=== PATIENT | female | born 1965 | race Caucasian/White ===

== ENCOUNTER 2022-08-02 12:09 | Emergency (ER) | payer OTHER, SELFPAY ==
[2022-08-02 12:19] VITALS: BP 177/72; PULSE 62; RESP 18; TEMP 36.7; O2SAT 98; BMI 25.2
--- NOTE | 2022-08-02 12:47 | W.ED.PSYCHS ---
HPI - Psych General: Chief Complaint: Psychiatric Symptoms Stated Complaint: Health Evaluation Time Seen by Provider: 08/02/22 12:37 PFSH ED PFSH: Medical History (Updated 06/22/22 @ 09:33 by Emelia Mills) Psychiatric care Course Vital Signs: Vital signs: Vital Signs Temperature 98.1 F 08/02/22 12:19 Pulse Rate 62 08/02/22 12:19 Respiratory Rate 18 08/02/22 12:19 Blood Pressure 177/72 08/02/22 12:19 Pulse Oximetry 98 08/02/22 12:19 Oxygen Delivery Me thod 08/02/22 12:19 Discharge Plan Discharge Condition: Stable Referrals: [facility] [Primary Care Provider] - Coding Level of Care Code ED Accounting Lecturer for Chikis Brumfield
--- NOTE | 2022-08-02 12:53 | ED_ITS ---
HPI - General Adult General: Chief complaint: Psychiatric Symptoms Stated complaint: Health Evaluation Time Seen by Provider: 08/02/22 12:37 History of Present Illness: HPI: [57]yo patient w/ hx of depression referred to the emergency room with worsening depression. Patient tells me that she wants her meds to be adjusted. Patient is currently on Celexa and Ativan for anxiety. On arrival, the patient is AAOx3 and cooperative with my evaluation. No focal complaints of chest pain, shortness of breath, palpitations, N/V, focal GI/ complaints. Currently denies SI/HI. No complaints of hallucinations. Onset: chronic Duration: ongoing Location: home Severity: severe Associated symptoms: Deny chest pain, dyspnea, nausea, rash, palpitations or vomiting Review of Systems Const: Denies: fever(s) or chills Eyes: Denies: change in vision ENMT: Denies: mouth pain Card: Denies: chest pain or palpitations Resp: Denies: dyspnea or non-productive cough GI: Denies: abdominal pain, nausea, vomiting or diarrhea : Denies: dysuria Musc: Denies: extremity pain Skin/Breast: Denies: rash or new lesions Neuro: Denies: weakness in extremities Psych: Reports: depression Won/Lymph: Denies: easy bruising PFSH ED PFSH: Medical History Depression Psychiatric care Social History Smoking and tobacco status: never smoked Alcohol intake: never Substance/Drug Use: never Physical Exam Const: COMMON NORMALS: alert HENMT: COMMON NORMALS: atraumatic HEAD & SCALP: atraumatic MOUTH: moist mucous membranes not abnormal Eye: COMMON NORMALS: EOMs intact bilaterally and conjunctivae normal CONJUNCTIVA: Yes conjunctivae normal Neck/C-Spine: COMMON NORMALS: full ROM and supple Resp: COMMON NORMALS: normal respiratory effort and clear to auscultation bilaterally AUSCULTATION: clear to auscultation bilaterally Cardio: COMMON NORMALS: regular rate RATE: regular rate GI: COMMON NORMALS: Soft to palpation and non-tender PALPATION: Yes Soft to palpation Extremity: COMMON NORMALS: full ROM Neuro: SENSORIUM/ORIENTATION: Yes alert MOTOR EXAM: No Abnormal motor strength present and Other motor observations present (no focal motor deficits) Psych: COMMON NORMALS: speech normal SPEECH: Yes normal speech MOOD & AFFECT: Yes depressed mood Course Vital Signs: Vital signs: Vital Signs Temperature 98.1 F 08/02/22 12:19 Pulse Rate 62 08/02/22 12:19 Respiratory Rate 18 08/02/22 12:19 Blood Pressure 177/72 08/02/22 12:19 Pulse Oximetry 98 08/02/22 12:19 Oxygen Delivery Me thod 08/02/22 12:19 MDM - General Adult Medical Decision Making [57]yo patient w/ hx of depression presenting for depression and request for medication adjustment. No SI or plan. HDS, exam within normal limit Thoughts are linear and organized, and the patient has no AH/VH, or HI. Clinically the patient displays no overt toxidrome; they are well appearing, with low suspicion for toxic ingestion given history and exam. Symptoms unlikely 2/2 anemia, hypothyroidism, infection, or ICH. [1:20pm] On reassessment, patient is hemodynamically stable with no acute medical complaints. Case discussed with psychiatric provider Dr. Dodson at [facility] psych inpatient who evaluated patient via telepsych and recommended discharge with close follow-up. Dajuan recommend starting patient on Abilify for adjunctive support for depression. Patient is instructed to come back to the emergency room should she have any episodes of depression or any new or concerning complaints. I have given patient follow up with our ed case manager to be seen by our outpatient by [facility] for depression and medication redjustment. Patient aware of a call from our ed case manager to schedule for appointment(s) and verbalizes understanding of the importance of following up. Rx abilify for depression Disposition: Discharge Discharge Plan Discharge Patient Disposition: Home Clinical Impression: Depression Condition: Stable Prescriptions: New Abilify 5 mg tablet 5 mg PO DAILY 20 Days Qty: 20 0RF Discharge Orders: Discharge ED (Routine); Ordered 08/02/22 Ordered By: Dayanara Berkowitz Referrals: Shanna Peña FNP [Primary Care Provider] - Discharge Diet: Advance as tolerated Discharge Activity: Increase activity as tolerated Patient Instructions: Depression (ED) Activity Restrictions/Additional Instructions: Please come back to the emergency room if you need help, have any urszula lucinations, or you have any depression or have thoughts about hurting yourself or other people. Our ed case manager will have you follow-up with [facility] in the next few days. You would be expected to have a phone call with our ed case manager who will put you on the schedule. You can expect a call from us in the next 2-3 days. If you don't hear from us, call us back in the emergency room at [phone]. Coding Level of Care Code ED Programs Assistant for Chikis Fwjenna Exam Comprehensive
[2022-08-02 13:49] VITALS: BP 170/70; PULSE 65; RESP 18; TEMP 36.7; O2SAT 98
--- NOTE | 2022-08-02 15:05 | DCPLANNER ---
Addendum entered by Cassy Mchugh 10/17/22 11:10: Patient had a follow up appointment scheduled with [facility] - patient did attend appointment. Addendum entered by Cassy Mchugh 08/03/22 14:33: Patient has a follow up appointment scheduled for Monday August 08, 2022 at 9:00 with Luc at [facility]. Clinic will call patient with appointment information. Original Note: manager room had message to schedule a follow up appointment for patient with [facility]. manager room sent patients information to Paris Gill at [facility], hospice home care coordinator. Patients information will be printed and reviewed. Clinic will call patient with appointment information.
== END 2022-08-02 13:55 | disposition home or self-care (01) ==
PROVIDERS: Emergency Provider Emergency Medicine; PCP Nurse Practitioner Family
DX: F32.A Depression, unspecified (principal)
CPT/HCPCS: 99283; Q3014

== ENCOUNTER → 2022-10-05 14:34 | Outpatient (BNVA) | payer OTHER, SELFPAY | PROVIDERS: PCP Nurse Practitioner Family; Visit Provider Nurse Practitioner Psychiatric/Mental Health | DX: Z79.899 Other long term (current) drug therapy (principal) | CPT/HCPCS: 80053; 82306; 84443 ==

== ENCOUNTER → 2023-01-24 14:06 | Outpatient (BNVA) | payer OTHER, SELFPAY | PROVIDERS: PCP Nurse Practitioner Family; Visit Provider Nurse Practitioner Psychiatric/Mental Health | DX: Z79.899 Other long term (current) drug therapy (principal) | CPT/HCPCS: 80061; 83036 ==

== ENCOUNTER → 2024-04-07 14:48 | Outpatient (BNVA) | payer OTHER, SELFPAY | PROVIDERS: PCP Nurse Practitioner Family; Visit Provider Nurse Practitioner Psychiatric/Mental Health | DX: Z79.899 Other long term (current) drug therapy (principal) | CPT/HCPCS: 80053; 80061; 83036 ==

== ENCOUNTER 2024-04-29 10:24 | Outpatient (CLI) | payer OTHER, SELFPAY ==
--- NOTE | 2024-04-29 10:40 | MM_ITS ---
WS: [id number] BILATERAL 3D TOMOSYNTHESIS DIGITAL SCREENING MAMMOGRAPHY WITH CAD CLINICAL INFORMATION: SCREENING HISTORY: Screening mammogram. No current complaints. COMPARISON: New baseline TECHNIQUE: Bilateral CC and MLO views. FINDINGS: The breasts are composed of heterogeneous fibroglandular density tissue, which can limit the detectio n of small underlying mass lesions. No suspicious mass, asymmetry, calcifications, or architectural d istortion. No evidence of malignancy. Lucent centered calcification LEFT breast. A few incidental pun ctate calcifications. Dense nodular breast tissue upper outer RIGHT breast. MM/[place] [id number] IMPRESSION: BI-RADS: 2-Benign FOLLOW UP: 1 Year Follow-up Recommend return to annual screening mammography.
== END 2024-04-29 10:25 | disposition home or self-care (01) ==
LOC: MOBLMAM 10:37
PROVIDERS: PCP Nurse Practitioner; Visit Provider Nurse Practitioner
DX: Z12.31 Encounter for screening mammogram for malignant neoplasm of breast (principal); R92.323 Mammographic fibroglandular density, bilateral breasts; R92.333 Mammographic heterogeneous density, bilateral breasts; R92.1 Mammographic calcification found on diagnostic imaging of breast; R92.30 Dense breasts, unspecified
CPT/HCPCS: 77063; 77067

== ENCOUNTER 2024-06-25 14:35 | Outpatient (CLI) | payer OTHER, SELFPAY | END 2024-06-25 14:36 | disposition home or self-care (01) | LOC: SPT 14:36 | PROVIDERS: PCP Nurse Practitioner; Visit Provider Podiatrist Foot & Ankle Surgery | DX: Z46.89 Encounter for fitting and adjustment of other specified devices (principal); S86.019D Strain of unspecified Achilles tendon, subsequent encounter; X58.XXXD Exposure to other specified factors, subsequent encounter | CPT/HCPCS: L4361 ==

== ENCOUNTER → 2024-07-09 13:00 | Outpatient (BNVA) | payer OTHER, SELFPAY | PROVIDERS: PCP Nurse Practitioner; Visit Provider Podiatrist Foot & Ankle Surgery | DX: S86.012A Strain of left Achilles tendon, initial encounter; X58.XXXA Exposure to other specified factors, initial encounter; R29.6 Repeated falls | CPT/HCPCS: 99213 ==

== ENCOUNTER → 2024-07-29 14:55 | Outpatient (BNVA) | payer OTHER, SELFPAY | PROVIDERS: PCP Nurse Practitioner; Visit Provider Podiatrist Foot & Ankle Surgery | DX: S86.012A Strain of left Achilles tendon, initial encounter; X58.XXXA Exposure to other specified factors, initial encounter | CPT/HCPCS: 99213 ==

== ENCOUNTER → 2024-09-03 13:47 | Outpatient (BNVA) | payer OTHER, SELFPAY | PROVIDERS: PCP Nurse Practitioner; Visit Provider Podiatrist Foot & Ankle Surgery | DX: S86.012A Strain of left Achilles tendon, initial encounter; X58.XXXA Exposure to other specified factors, initial encounter | CPT/HCPCS: 99213 ==

== ENCOUNTER → 2024-10-14 13:36 | Outpatient (BNVA) | payer OTHER, SELFPAY | PROVIDERS: PCP Nurse Practitioner; Visit Provider Nurse Practitioner | DX: M25.561 Pain in right knee (principal); M25.562 Pain in left knee; M17.0 Bilateral primary osteoarthritis of knee | CPT/HCPCS: 20610; 73560; 73565; 99204; J1100; J2795; J3301 ==

== ENCOUNTER 2024-10-14 15:34 | Outpatient (CLI) | payer OTHER, SELFPAY | END 2024-10-14 15:35 | disposition home or self-care (01) | LOC: SPT 15:34 | PROVIDERS: PCP Nurse Practitioner; Visit Provider Nurse Practitioner | DX: Z46.89 Encounter for fitting and adjustment of other specified devices (principal); M25.561 Pain in right knee; M25.562 Pain in left knee | CPT/HCPCS: 97760; L1812 ==

== ENCOUNTER → 2024-10-15 13:50 | Outpatient (BNVA) | payer OTHER, SELFPAY | PROVIDERS: PCP Nurse Practitioner; Visit Provider Podiatrist Foot & Ankle Surgery | DX: E11.8 Type 2 diabetes mellitus with unspecified complications (principal); S86.012A Strain of left Achilles tendon, initial encounter; X58.XXXA Exposure to other specified factors, initial encounter | CPT/HCPCS: 99213 ==

== ENCOUNTER → 2025-01-13 13:59 | Outpatient (BNVA) | payer OTHER, SELFPAY | PROVIDERS: PCP Nurse Practitioner; Visit Provider Nurse Practitioner | DX: M17.0 Bilateral primary osteoarthritis of knee (principal); S89.91XA Unspecified injury of right lower leg, initial encounter; X58.XXXA Exposure to other specified factors, initial encounter | CPT/HCPCS: 20610; 73560; 73565; 99214; J1100; J2795; J3301; J9999 ==

== ENCOUNTER 2025-02-03 10:19 | Outpatient (CLI) | payer OTHER, SELFPAY ==
--- NOTE | 2025-02-03 10:45 | CT_ITS ---
WS: [id number] CT LEFT knee, noncontrast HISTORY: M17.0 - Bilateral primary osteoarthritis of knee TECHNIQUE: Protocol for [facility] total knee replacement has been obtained. This includes axial imaging through the LEFT hip, LEFT knee and LEFT ankle. DLP: 909.58 mGy.cm COMPARISON: Radiograph 01/13/2025 Hips: No fracture or destructive bone process. Mild arterial calcifications. LEFT knee: Mild tricompartment osteoarthritis. Slightly greater narrowing at the medial compartment. No destructive bone lesions. Small suprapatellar joint effusion. Popliteal artery calcifications. LEFT ankle: Negative. CT/CT knee LT [facility] [id number] IMPRESSION: CT imaging provided for [facility] robotic total knee replacement.
== END 2025-02-03 10:20 | disposition home or self-care (01) ==
PROVIDERS: PCP Nurse Practitioner; Visit Provider Nurse Practitioner
DX: M17.0 Bilateral primary osteoarthritis of knee (principal); I70.90 Unspecified atherosclerosis; M25.462 Effusion, left knee; I70.8 Atherosclerosis of other arteries
CPT/HCPCS: 73700

== ENCOUNTER 2025-02-18 13:27 | Outpatient (CLI) | payer OTHER, SELFPAY ==
--- NOTE | 2025-02-18 13:45 | CT_ITS ---
WS: [id number] CT LEFT KNEE, NONCONTRAST [facility] TECHNIQUE: Noncontrast CT of the LEFT knee to include the LEFT hip and ankle. CLINICAL INFORMATION: PER [facility] PROTOCOL DLP: 959.[address] scans at [facility] use at least one of these dose optimization techniques: automated exposure control; mA and/or kV adjustment per patient size (includes targeted exams where dose is matched to clinical indication); or iterative reconstruction. FINDINGS: Moderate tricompartment arthritis LEFT knee. Moderate to advanced joint space narrowing medial joint compartment with near [id number] articulation. Hypertrophic changes along the joint line. Hypertrophic patella. Small suprapatellar effusion. Vascular calcification. Subchondral cystic changes. Normal sigmoid colon. CT/CT knee LT [facility] [id number] IMPRESSION: Images obtained for preoperative purposes.
== END 2025-02-18 13:28 | disposition home or self-care (01) ==
PROVIDERS: PCP Nurse Practitioner; Visit Provider Nurse Practitioner
DX: M17.0 Bilateral primary osteoarthritis of knee (principal); R93.6 Abnormal findings on diagnostic imaging of limbs; M89.38 Hypertrophy of bone, other site; M25.462 Effusion, left knee; I70.90 Unspecified atherosclerosis
CPT/HCPCS: 73700

== ENCOUNTER 2025-02-26 12:09 | Outpatient (CLI) | payer OTHER, SELFPAY ==
[2025-02-26 12:34] LABS: Basophils % 0.3 %; Eosinophils % 0.2 %; Hematocrit 37.9 % (36-47); Lymphocytes # 1.9 10^3/uL (0.8-4.8); Lymphocytes % 16.6 %; Mean Corpuscular HGB Conc 33.5 g/dL (30-55); Mean Corpuscular Hemoglobin 35.9 pg (27-33); Mean Corpuscular Volume 107.1 fl (85-98); Mean Platelet Volume 10.3 fL (7.4-10.4); Monocytes % 8.4 %; Neutrophils # 8.45 10^3/uL (1.8-7.7); Neutrophils % 74.1 %; Nucleated Red Blood Cells % 0 %; Platelet Count 166 10^3/cmm (157-399); Red Blood Count 3.54 10^6/uL (3.85-5.65); Red Cell Distribution Width 13.9 % (12.1-15.1)
[2025-02-26 12:34] LABS: Bilirubin Urine Negative (Negative); Blood Urine 2+ (Negative); Glucose Urine UA Negative (Normal); Ketones Urine Negative (Negative); Leukocyte Esterase Urine Negative (Negative); Nitrate Urine Negative (Negative); Protein Urine Negative (Negative); Specific Gravity, Urine 1.005 (1.005-1.030); Urine Appearance Clear (CLEAR); Urine Color Yellow (Yellow); Urobilinogen Urine 0.2 mg/dL (Negative); pH Urine 6.5 (5-7)
[2025-02-26 12:39] LABS: Add Urine Microscopic? YES; Bacteria Urine None Seen /hpf; Hyaline Casts Urine 0-4 /lpf; RBC Urine 0-2 /hpf (0-2); WBC Urine 0-5 /hpf (0-5)
[2025-02-26 12:54] LABS: Alanine Aminotransferase 12 U/L (0-33); Alkaline Phosphatase 82 U/L (35-105); Anion Gap 14.1 (5-19); Aspartate Amino Transferase 11 U/L (0-32); Blood Urea Nitrogen 10 mg/dL (6-20); Carbon Dioxide 29 mmol/L (22-29); Chloride 100 mmol/L (98-107); Globulin 2.7 g/dL (1.3-4.6); Glomerular Filtration Rate 56.7 mL/min (90-130); Glucose 128 mg/dL (65-115); Osmolality Calculated 291 mOsm/kg (285-295); Potassium 3.1 mmol/L (3.5-5.1); Sodium 140 mmol/L (136-145); Total Bilirubin 0.2 mg/dL (0.15-1.2); Total Protein 6.7 g/dL (6.6-8.7)
[2025-02-26 13:15] LABS: Squamous Epithelial Cell Urine 0-5 /hpf (0-5); UA Slide Review UA Slide Review Perf
[2025-02-26 13:16] LABS: Add Urine Culture? No
== END 2025-02-26 12:10 | disposition home or self-care (01) ==
PROVIDERS: PCP Nurse Practitioner; Visit Provider Nurse Practitioner
DX: M17.0 Bilateral primary osteoarthritis of knee (principal)
CPT/HCPCS: 80053; 81001; 85025

== ENCOUNTER → 2025-03-08 15:23 | Outpatient (BNVA) | payer OTHER, SELFPAY | PROVIDERS: PCP Nurse Practitioner; Visit Provider Nurse Practitioner | DX: M17.12 Unilateral primary osteoarthritis, left knee (principal) | CPT/HCPCS: 99214 ==

== ENCOUNTER 2025-03-11 13:09 | Observation (INO) | payer OTHER, SELFPAY ==
[2025-03-11] VITALS (18 sets, daily range): BP systolic 133–184; BP diastolic 59–94; PULSE 67–84; RESP 14–25; TEMP 36.1–37.1; O2SAT 90–99; BMI 31.8
[2025-03-11] MEDS: acetaminophen 1,000 MG/100 ML PIGGYBACK 400 MG IV ×3 (06:21→20:25)
[2025-03-11] MEDS: gabapentin 300 mg Capsule PO (06:22)
[2025-03-11] MEDS: CELEcoxib 200 mg Capsule 400 MG PO (06:22)
--- NOTE | 2025-03-11 07:09 | W.PM.OPSUD ---
Surgery/Procedure H&P Update DATE OF PROCEDURE: March 11, 2025 DATE H&P PERFORMED: 03/01/25 H&P UPDATE INFORMATION: I have reviewed H&P completed within last 30 days, I have examined patient prior to procedure, No changes to prior documentation and H&P is in [facility] EMR on date indicated CHANGES TO PREVIOUS DOCUMENTATION: Patient was seen and evaluated preoperatively by her primary care, Sara Crawford, nurse practitioner for orthopedics, as well as Dr. Weeks. She has been tested for autoimmune disease, but this is still in the workup process. There are no definitive findings. ABIs were negative preoperatively. After discussion with the patient, we elected proceed with surgical intervention. There are what appeared to be some petechia or purpura over the anterior medial aspect of the knee. There is no sign of infection or other issue of concern. PLANNED PROCEDURE: Operation Date: 03/11/25 07:00 Proposed Procedures p LEFT Prashanth Robot Total Knee Arthroplasty(Left) - Jacquelyn Mukherjee MD Related Problem List Diagnoses (1) Primary osteoarthritis of left knee: (2) Autoimmune disorder:
[2025-03-11] MEDS: ceFAZolin 2,000 mg SDV 2000 MG IVP ×2 (07:10→17:34)
--- NOTE | 2025-03-11 07:12 | ANES.PREANE2 ---
Pre-Anesthetic Assessment Height/Weight: Height 1.52 m Weight 73.936 kg Temp Pulse Resp BP Pulse Ox O2 Del Method 97.0 F L 68 18 184/94 97 Room Air 03/11/25 05:59 03/11/25 05:59 03/11/25 05:59 03/11/25 05:59 03/11/25 05:59 03/11/25 05:59 Operation Date: 03/11/25 07:00 Proposed Procedures p LEFT Prashanth Robot Total Knee Arthroplasty(Left) - Jacquelyn Mukherjee MD Familial anesthetic complications: none Was Beta Carol taken within 24 hours: N/A Was Clonidine taken within 24 hours: N/A Last intake: Intake Last Liquid Date 03/10/25 Last Liquid Time 22:00 Last Solid Date 03/10/25 Last Solid Time 19:00 Social Tobacco and No alcohol Exam alert, oriented x 3, clear to auscultation bilaterally and regular rate & rhythm Airway Mallampati: Class I Dentition: false CV/HEM Hypertension [facility] 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 States it only affects her by red jay/lesions showing up on her skin. Anesthetic Plan ASA status: 2 Anesthesia: General Risk of > 500 ml blood loss (7ml/kg in children): No Medications/Allergies Home Medications ?Medication ?Instructions ?Recorded ?Confirmed ?Last Taken ?Type lisinopril 20 mg tablet 20 mg PO DAILY 08/08/22 03/10/25 03/10/25 22:30 History bilateral hinged knee braces #1 ea 10/14/24 03/08/25 Unknown Rx cholecalciferol (vitamin D3) 50 50 mcg PO DAILY 11/24/24 03/10/25 03/10/25 22:30 History mcg (2,000 unit) tablet clonidine HCl 0.1 mg tablet 0.1 mg PO BID PRN hypertensive 12/22/24 03/10/25 03/10/25 22:30 Rx emergency #60 tabs venlafaxine 100 mg tablet 300 mg (3 x 100 mg) PO .morning 01/14/25 03/10/25 03/10/25 22:30 Rx #90 tabs clonazepam 1 mg tablet (Klonopin) 1 mg PO BID anxiety/panic attacks 03/10/25 03/10/25 03/10/25 22:30 History Allergies Allergy/AdvReac Type Severity Reaction Status Date / Time No Known Allergies Allergy Verified 03/11/25 05:55 [facility] Anesthesia Medical History Chronic post-traumatic stress disorder Major depressive disorder, recurrent severe without psychotic features Generalized anxiety disorder with panic attacks Nicotine dependence, cigarettes, uncomplicated Complicated bereavement Sudden loss of son 09/28/2019 Father in law 11/20/24 Psychiatric care Social History Smoking and tobacco/nicotine status: current every day tobacco/nicotine user cigarettes Packs smoked per day: 1 Years cigarettes smoked: 20 Quit status (tobacco/nicotine): considering quitting Second hand smoke exposure: Yes Alcohol intake: current Alcohol intake frequency: holidays/special occasions only Alcohol type: beer Substance/Drug Use: current Substance/Drug use frequency: few times a week
[2025-03-11] MEDS: tranexamic acid 1,000 mg/10mL SDV 1000 MG IV (07:45)
[2025-03-11] MEDS: ceFAZolin 1,000 mg SDV 2000 MG IRRIGATION (08:28)
[2025-03-11] MEDS: VANCOMYCIN ADD-Vantage 1,000 MG VIAL 1000 MG XX (08:31)
[2025-03-11] MEDS: BUPivacaine liposome 13.3 mg/mL SDV 20 mL 266 MG INJECTION (08:35)
[2025-03-11] MEDS: BUPivacaine 0.5% INJ 10 mL 20 ML INJECTION (08:35)
--- NOTE | 2025-03-11 10:06 | XR_ITS ---
WS: [id number] Exam: XR knee LT 1-2V [id number] Date/Time of Exam: 03/11/2025 10:16 AM Reason For Exam: Status post total knee arthroplasty Comparison 01/13/2025. Total knee prosthesis is in place in excellent position. Postoperative changes in the adjacent soft tissues. XR/XR knee LT 1-2V [id number] IMPRESSION: 1. LEFT total knee replacement in excellent position.
--- NOTE | 2025-03-11 10:11 | P.OP_ITS ---
Operative Report Date of procedure: March 11, 2025 Pre-op diagnosis: Primary osteoarthritis left knee Post-op diagnosis: Primary osteoarthritis left knee Post-op findings: Significant degenerative osteoarthritis with large osteophytes and complete denudement of cartilage. Varus deformity. Procedure done: Left total knee arthroplasty with Prashanth guidance Implants: The [employer] total knee system with a size 3 triathlon beaded cruciate retaining femur left, a triathlon titanium tibial component size 3 beaded, a triathlon X3 tibial bearing CS insert size 3 X 10 mm and a beaded triathlon titanium asymmetric patella size 32 x 10 mm Specimens removed/disposition: Synovium to pathology, bone, disposed of Pathology: Synovium as above the pathology Surgeon: Jacquelyn Mukherjee MD Baby Formula Mixer: Sara Crawford, nurse practitioner who services were required for retraction, exposure, closure, and completion of the surgical procedure Anesthesia: General (Intubated, ASA 2) Estimated blood loss (mL): 100 Tourniquet time (min): 0 (Not utilized) IV fluids (mL): 1,500 Urine output (mL): 200 Complications: None Findings: Severe degenerative osteoarthritis with varus deformity and significant osteophytes and denudement of cartilage Condition: stable Disposition: PACU (Then admit to hospital under observation status for postoperative rehabilitation and pain management) Brief History: This 60-year-old woman presented to the office complaining of bilateral knee pain with a diagnosis of osteoarthritis. The left knee continued to worsen, and injection therapy did not provide her with significant relief. The right knee had significant relief with the injection therapy and she wished to proceed with injection therapy to the right knee only. Additionally, the patient wished to proceed with left total knee arthroplasty. Extended discussion was undertaken regarding the risks and complications. She is surgery was scheduled. Questions were answered, and consent was signed in the clinic. Patient was seen the morning of surgery and given further opportunity for questions and discussion. Procedure: The patient was brought to the operating theater, and after undergoing adequate general anesthesia intubated, ASA 2, the left lower extremity was prepped with DuraPrep and draped in usual fashion following placement of a tourniquet high on the leg. The leg was then draped free. Tourniquet was placed on the leg but was not elevated throughout the surgical procedure. Following exposure of the site of surgery, a surgical pause was performed. At the time of the surgical pause, we confirmed the site and side of surgery. Additionally, we confirmed the appropriate and timely administration of preoperative antibiotics, Ancef 2 g. Tranexamic acid 1 g was given preoperatively and will be given again on the floor for 1 dose postoperatively. The availability of equipment was confirmed, and the patient's identity was verbalized as well. Following the surgical pause, an incision was made centering over the patella continuing proximally and distally as necessary to allow access to the knee joint. Dissection continued through skin and soft tissues using a scalpel. Hemostasis was obtained using electrocautery. The skin incision was followed by a median parapatellar arthrotomy. Appropriate arrays and markers were placed in appropriate position for use of the [facility]. Preoperative planning had been accomplished and was discussed in detail with the [facility] telemarketing sales representative. Intraoperative mapping of the femur and tibia was accomplished after the arrays were placed. Once we had accomplished the [facility] mapping, we began the appropriate resections for placement of the prosthesis. The plan was for a cruciate retaining right total knee arthroplasty. Once appropriate mapping had been accomplished retraction was established using manual retraction by the [facility] leg positioner and retractors. The knee was evaluated. There was eburnation particularly of the medial femoral condyle.? There were large osteophytes circumferentially about the trochlear groove as well as the patella and medial tibial plateau.? After balancing the knee within the Prashanth program, the appropriate bone resection was accomplished. Initial resection was accomplished on the tibia followed by appropriate resections on the femur. We had performed a medial release at the beginning of the procedure to allow for placement of the array. Proximal tibia was evaluated and it was felt that appropriate size for the tibia was a size 3, and appropriate femoral size was a size 3. A trial reduction was accomplished after osteophytes had been removed, the medial and lateral meniscus were excised, and bone cuts had been accomplished as above. We had removed the anterior cruciate ligament at the beginning of the case and preserved the posterior cruciate ligament. Trial reduction was accomplished with a size 3 femoral cruciate retaining component and a size 3 tibia with a CS tibial bearing insert which was 10 mm in thickness. Initial trial reduction demonstrated that the knee had excellent stability, full extension, and full flexion. Slight posterior release was accomplished, and small osteophytes were removed from posteriorly as well. This was consistent with the preoperative balancing and planning. The trial components were removed after the femur had been drilled. Prior to removal of the tibial tray which had been pinned in position with appropriate rotation as determined by the Prashanth plan, we broached the tibia. Subsequently, the 4 drill holes were made for the prosthetic component. All trial components had been removed, and the wound was irrigated. Plans were made for insertion of the prosthetic components. Prior to this, the patella was prepared utilizing the patellar jig. We resected the articular surface of the patella utilizing the appropriate resection, and patellar height was restored with the patellar component. Once again, the wound was irrigated. The Tritanium tibia was impacted into position.? The beaded femur was then impacted into position in a cementless fashion. The CS tibial insert was placed prior to placement of the femoral component. The patella was pressed into position with a patellar clamp. The knee was then copiously irrigated with betadine and saline and suctioned dry. Attention was then directed to closure. Closure was accomplished with 0 Vicryl in the fascial tissues followed by a running #1 strata fix 1 from proximal to distal and 1 from distal to proximal.? This was followed by Surgiflo and vancomycin powder. Subcutaneous tissues were closed with 2-0 Monocryl strata fix, and the skin was closed in a running subcuticular fashion with 3-0 Monocryl strata fix.? A sterile dressing was then placed consisting of Dermabond Prineo, OpSite, sterile soft roll including over the foot, and an Taye wrap. The patient was returned the Recovery Room in a satisfactory condition. X-rays were obtained and reviewed there.? The patient will be discharged to the floor for postoperative rehabilitation and pain management. Related Problem List Diagnoses (1) Primary osteoarthritis of left knee:
--- NOTE | 2025-03-11 10:13 | PC.NURSE ---
YEAST NOTED ON BILAT INNER THIGHS. Merlyn VIVAS KINESIOLOGY PROFESSOR AWARE.
[2025-03-11] MEDS: fentaNYL 50 mcg/mL INJ 2mL IVP (10:52)
--- NOTE | 2025-03-11 10:55 | PC.NURSE ---
PATIENT FRIAS COPD DX FOR 10 YEARS, DOES NOT WEAR OXYGEN AT HOME. EVERY DAY SMOKER. OXYGEN SAT DROPPING TO M87 BACK UP TO 91. PATIENT PLACED ON 2L OXYGEN FOR SUPPLEMENT POST OPERATIVELY. ANESTHESIOLOGY CONSULTED. OKAYED TO GIVE PRN POST OP PAIN MEDICATION.
[2025-03-11] MEDS: oxyCODONE 5 mg IR Tab/Cap PO (12:00)
--- NOTE | 2025-03-11 13:34 | ANE.PACU2 ---
Inpatient post-anesthesia follow up: Airway intact: Yes Vital signs: Temperature 97.6 F Pulse Rate 72 Respiratory Rate 17 Blood Pressure 134/59 Pulse Oximetry 95 Oxygen Delivery Me thod Nasal Cannula Oxygen Flow Rate 2 Fraction of Inspir ed Oxygen 2 Hydration adequate: Yes Nausea and vomiting: No Pain level: 1 Mental status: Baseline
[2025-03-11] MEDS: CELEcoxib 200 mg Capsule PO (14:00)
[2025-03-11] MEDS: tranexamic acid 1,000 MG/100 ML PREMIX 600 MG IV (16:10)
[2025-03-11] MEDS: calcium carbonate 500 mg Chew Tablet 1000 MG PO (17:32)
[2025-03-11] MEDS: sennosides-docusate Tablet 2 TAB PO (17:32)
[2025-03-11] MEDS: iron polysaccharide complex 150 mg Capsule PO (17:32)
[2025-03-11] MEDS: chlorhexidine gluconate 0.12% Btl 473 mL 30 ML MUCOUS MEM ×2 (17:34→20:25)
[2025-03-11] MEDS: mupirocin oint 22 gm 1 APPLIC NASAL (17:36)
[2025-03-12] VITALS (7 sets, daily range): BP systolic 151–182; BP diastolic 69–85; PULSE 73–77; RESP 16–19; TEMP 36.4–36.9; O2SAT 92–96
[2025-03-12] MEDS: oxyCODONE 5 mg IR Tab/Cap PO ×2 (00:01→08:07)
[2025-03-12] MEDS: CELEcoxib 200 mg Capsule PO (00:01)
[2025-03-12] MEDS: cloNIDine 0.1 mg Tablet PO (04:12)
[2025-03-12] MEDS: acetaminophen 1,000 MG/100 ML PIGGYBACK 400 MG IV (04:14)
[2025-03-12] MEDS: CLONazepam 1 mg Tablet PO (04:23)
[2025-03-12 05:48] LABS: Basophils % 0.1 %; Hematocrit 30.5 % (36-47); Lymphocytes # 0.9 10^3/uL (0.8-4.8); Lymphocytes % 7.2 %; Mean Corpuscular HGB Conc 32.5 g/dL (30-55); Mean Corpuscular Hemoglobin 35.4 pg (27-33); Mean Corpuscular Volume 108.9 fl (85-98); Mean Platelet Volume 10.8 fL (7.4-10.4); Monocytes # 1.7 10^3/uL (0.2-0.9); Monocytes % 13.2 %; Neutrophils # 9.98 10^3/uL (1.8-7.7); Nucleated Red Blood Cells % 0 %; Platelet Count 127 10^3/cmm (157-399); Red Cell Distribution Width 13.1 % (12.1-15.1); White Blood Count 12.63 10^3/uL (3.29-11.43)
[2025-03-12 05:58] LABS: Anion Gap 10.2 (5-19); Blood Urea Nitrogen 17 mg/dL (6-20); Calcium 8.3 mg/dL (8.5-10.5); Carbon Dioxide 30 mmol/L (22-29); Chloride 103 mmol/L (98-107); Creatinine Clr Calc Pharmacy 47.6783; Glucose 117 mg/dL (65-115); Osmolality Calculated 293 mOsm/kg (285-295); Potassium 3.2 mmol/L (3.5-5.1); Sodium 140 mmol/L (136-145)
[2025-03-12] MEDS: venlafaxine 75 mg Tablet 300 MG PO (06:11)
[2025-03-12] MEDS: calcium carbonate 500 mg Chew Tablet 1000 MG PO (08:08)
[2025-03-12] MEDS: multivitamin therapeutic Tablet 1 TAB PO (08:08)
[2025-03-12] MEDS: iron polysaccharide complex 150 mg Capsule PO (08:08)
[2025-03-12] MEDS: cholecalciferol (vitamin D3) 1,000 unit Tablet 1000 UNIT PO (08:08)
[2025-03-12] MEDS: lisinopril 20 mg Tablet PO (08:08)
[2025-03-12] MEDS: aspirin 325 mg EC Tablet PO (08:08)
[2025-03-12] MEDS: sennosides-docusate Tablet 2 TAB PO (08:08)
[2025-03-12] MEDS: ceFAZolin 2,000 mg SDV 2000 MG IVP ×2 (09:55)
[2025-03-12] MEDS: chlorhexidine gluconate 0.12% Btl 473 mL 30 ML MUCOUS MEM (10:03)
[2025-03-12] MEDS: mupirocin oint 22 gm 1 APPLIC NASAL (10:04)
--- NOTE | 2025-03-12 12:47 | P.DS_ITS ---
Discharge Providers Date of Admission: 03/11/25 13:09 Date of Discharge: March 12, 2025 Attending Provider at Admission: Jacquelyn Mukherjee MD Attending Provider at Discharge: Jacquelyn Mukherjee MD Primary Care Provider: JANESSA Steele Diagnoses at Discharge Discharge Diagnosis (1) Primary osteoarthritis of left knee: Status: Chronic (2) Status post total left knee replacement not using cement: Status: Acute Permanent problem details: Date of procedure: March 11, 2025 Diagnosis: Primary osteoarthritis left knee Procedure done: Left total knee arthroplasty with Prashanth guidance Implants: The [place] total knee system with a size 3 triathlon beaded cruciate retaining femur left, a triathlon titanium tibial component size 3 beaded, a triathlon X3 tibial bearing CS insert size 3 X 10 mm and a beaded triathlon titanium asymmetric patella size 32 x 10 mm Reason for Visit Reason for Visit: M17.12 Brief History: This 60-year-old woman presented to the office complaining of bilateral knee pain with a diagnosis of osteoarthritis. The left knee continued to worsen, and injection therapy did not provide her with significant relief. The right knee had significant relief with the injection therapy and she wished to proceed with injection therapy to the right knee only. Additionally, the patient wished to proceed with left total knee arthroplasty. Extended discussion was undertaken regarding the risks and complications. She is surgery was scheduled. Questions were answered, and consent was signed in the clinic. Patient was seen the morning of surgery and given further opportunity for questions and discussion. Hospital Course Hospital Course This 60-year-old woman was admitted under observation status following left total knee arthroplasty. Her postoperative stay was uneventful, and in fact, the patient wanted to be able to be discharged home on the day of surgery. She was encouraged to remain in the hospital for pain management and observation as well. Patient worked with physical therapy, and she was felt to be safe to be discharged to home. Plans are made for this discharge. Physical Exam Const: COMMON NORMALS: no acute distress, average body habitus, patient oriented x3 and alert GENERAL APPEARANCE: cooperative and comfortable ORIENTATION/CONSCIOUSNESS: Yes awake HENMT: COMMON NORMALS: normocephalic and atraumatic HEAD & SCALP: normocephalic and atraumatic Eye: GENERAL EYE: appearance normal, both eyes and all related structures Chest: COMMONS NORMALS: normal inspection of the chest Resp: COMMON NORMALS: normal respiratory effort EFFORT & INSPECTION: Yes able to speak in complete sentences and Yes symmetric chest movement Extremity: LEFT LOWER EXTREMITY: Yes knee joint ([place] dressing is dry and intact) Left knee: Yes inspection (Bruising medially), Yes palpation (Minimal tenderness), Yes ROM (Able to easily straight leg raise) and Yes neurovascular exam (Intact distally with no evidence of DVT) Neuro: COMMON NORMALS: patient oriented x3 SENSORIUM/ORIENTATION: Yes alert Psych: COMMON NORMALS: mental status grossly normal APPEARANCE: Yes grossly normal ATTITUDE: Yes calm and Yes engaged ATTENTION/CONCENTRATION: Yes attention grossly intact Skin: COMMON NORMALS: no rashes or lesions noted GENERAL SKIN EXAM: no rashes or lesions noted Urinary Catheter Management: Moore: Cath Placed During This Visit: yes, but has since been removed by the nurse Reason for Continuing Indwelling Catheter: Perioperative Use in Selected Surgeries Urinary Catheter Date of Insertion: 03/11/25 Urinary Catheter Time of Insertion: 07:21 Date Urinary Catheter Removed: 03/11/25 Time Urinary Catheter Discontinued: 17:35 Discharge Data Studies Completed and Pending Completed Studies During Hospitalization Category Date Time Status XR knee LT 1-2V [id number] Urgent Exams 03/11/25 10:06 Completed Pending at discharge Category Date Time Status Pathology: Surgical [PTH] Routine Pth 03/11/25 09:00 Received Radiology Impressions Knee X-Ray 03/11/25 10:06 IMPRESSION: 1. LEFT total knee replacement in excellent position. Laboratory Results WBC 12.63 10^3/uL (3.29-11.43) H 03/12/25 05:08 RBC 2.80 10^6/uL (3.85-5.65) L 03/12/25 05:08 Hgb 9.90 g/dL (11.27-16.99) L 03/12/25 05:08 Hct 30.5 % (36-47) L 03/12/25 05:08 MCV 108.9 fl (85-98) H 03/12/25 05:08 MCH 35.4 pg (27-33) H 03/12/25 05:08 MCHC 32.5 g/dL (30-55) 03/12/25 05:08 RDW 13.1 % (12.1-15.1) 03/12/25 05:08 Plt Count 127 10^3/cmm (157-399) L 03/12/25 05:08 MPV 10.8 fL (7.4-10.4) H 03/12/25 05:08 Neut % (Auto) 79.0 % 03/12/25 05:08 Lymph % (Auto) 7.2 % 03/12/25 05:08 [place] % (Auto) 13.2 % 03/12/25 05:08 Eos % (Auto) 0.0 % 03/12/25 05:08 Baso % (Auto) 0.1 % 03/12/25 05:08 Neut # (Auto) 9.98 10^3/uL (1.8-7.7) H 03/12/25 05:08 Lymph # (Auto) 0.9 10^3/uL (0.8-4.8) 03/12/25 05:08 [place] # (Auto) 1.7 10^3/uL (0.2-0.9) H 03/12/25 05:08 Eos # (Auto) 0.0 10^3/uL (0.0-0.8) 03/12/25 05:08 Baso # (Auto) 0.0 10^3/uL (0.0-0.1) 03/12/25 05:08 Nucleated RBC % (auto) 0 % 03/12/25 05:08 Nucleated RBCs # 0.0 /100WBC 03/12/25 05:08 Sodium 140 mmol/L (136-145) 03/12/25 05:08 Potassium 3.2 mmol/L (3.5-5.1) L 03/12/25 05:08 Chloride 103 mmol/L (98-107) 03/12/25 05:08 Carbon Dioxide 30 mmol/L (22-29) H 03/12/25 05:08 Anion Gap 10.2 (5-19) 03/12/25 05:08 BUN 17 mg/dL (6-20) 03/12/25 05:08 Creatinine 1.2 mg/dL (0.5-0.9) H 03/12/25 05:08 GFR Calculation 46.0 mL/min (90-130) L 03/12/25 05:08 Glucose 117 mg/dL (65-115) H 03/12/25 05:08 Calculated Osmolality 293 mOsm/kg (285-295) 03/12/25 05:08 Calcium 8.3 mg/dL (8.5-10.5) L 03/12/25 05:08 Vitals Last Vital Signs Temp 98.5 F 03/12/25 12:38 Pulse 73 03/12/25 12:38 Resp 18 03/12/25 12:38 BP 151/69 03/12/25 12:38 Pulse Ox 94 03/12/25 12:38 O2 Del Method Room Air 03/12/25 12:38 O2 Flow Rate 2 03/11/25 13:10 FiO2 2 03/11/25 11:38 Discharge Plan Discharge Patient Disposition: Home Health Service Condition: Stable Prescriptions: New celecoxib 200 mg Capsule 200 mg PO 1XD 30 Days Qty: 30 0RF acetaminophen 500 mg Tablet 1,000 mg PO Q8H 15 Days Qty: 90 0RF aspirin 325 mg Tablet,Delayed Release (Dr/Ec) 325 mg PO DAILY 30 Days Qty: 30 0RF oxycodone 5 mg Tablet 5 mg PO Q4H PRN (Reason: Moderate To Severe Pain) 7 Days Qty: 30 0RF Continued cholecalciferol (vitamin D3) 50 mcg (2,000 unit) tablet 50 mcg PO DAILY lisinopril 20 mg tablet 20 mg PO DAILY (DME) bilateral hinged knee braces See Rx Instructions .Route .MEDSUPPLY Qty: 1 0RF Rx Instructions: As directed venlafaxine 100 mg tablet 300 mg PO .morning Qty: 90 3RF Rx Instructions: Take three tablets every morning clonidine HCl 0.1 mg tablet 0.1 mg PO BID PRN (Reason: hypertensive emergency) Qty: 60 3RF Rx Instructions: May take one tablet twice per day as needed for systolic BP of 160 or higher clonazepam [Klonopin] 1 mg tablet 1 mg PO BID Rx Instructions: May take tablet twice per day as needed for anxiety/panic attacks Discharge Orders: Discharge Order (Routine); Ordered 03/12/25 Ordered By: Jacquelyn Mukherjee Other Ambulatory Orders: DME: Walker (Order) Location: None Selected Ordered By: Jacquelyn Mukherjee Referrals: [facility] [Outside] Jacquelyn Mukherjee MD [Physician, Orthopedics] - 03/29/25 10:30 am Kaila Rivas FNP [Primary Care Provider, Nurse Practitioner] - 03/15/25 3:00 pm Discharge Diet: Advance as tolerated, Usual diet and As Directed Discharge Activity: Increase activity as tolerated and Limit activity as instructed Patient Instructions: Acetaminophen (By mouth), Oxycodone/Acetaminophen (By mouth), Aspirin (By mouth), Celecoxib (By mouth), Acute Wound Care (DC), Total Knee Replacement (DC), Post Anesthesia Care Activity Restrictions/Additional Instructions: Weightbearing as tolerated. Range of motion per physical therapy. Ambulation and strengthening per physical therapy as well. You may shower, but if your dressing begins to leak, please remove it. Otherwise, maintain the dressing until you are seen in the office. Do not submerge your knee in water. Discharge Attestations Time Spent in Discharge Care*: greater than 30 min Specific Discharge Activities: educating patient, documenting/other paperwork and evaluating patient/reviewing data Quality Metrics Clinical Quality Measures [ No reported AMI, CVA or VTE this stay] Coding Level of Care Code Acute Code for Chg Fwd Diagnoses Primary osteoarthritis of left knee M17.12 Status post total left knee replacement not using cement Z96.652
--- NOTE | 2025-03-12 13:29 | PC.OT ---
Patient declines OT evaluation due to being discharged; will attempt again at later time.
== END 2025-03-12 13:51 | disposition home health service (06) ==
LOC: MEDSURG 13:10
PROVIDERS: Admitting Provider Specialist; PCP Nurse Practitioner; Visit Provider Specialist
PROC: 8E0Y0CZ Robotic Assisted Procedure of Lower Extremity, Open Approach (ICD-10-PCS; CPT 27447; principal; 2025-03-11 07:00)
DX: M17.12 Unilateral primary osteoarthritis, left knee (principal); I10 Essential (primary) hypertension; F43.12 Post-traumatic stress disorder, chronic; F17.210 Nicotine dependence, cigarettes, uncomplicated
CPT/HCPCS: 27447; 20985; 36415; 51702; 73560; 80048; 85025; 88305; 97110; 97116; 97161; A4216; C1776; G0378; J0131; J0666; J0690; J1100; J2371; J2405; J2704; J3010; J3370; J3490; J9999

== ENCOUNTER 2025-03-15 18:29 | Emergency (ER) | payer OTHER, SELFPAY ==
[2025-03-15 18:32] VITALS: BP 171/68; PULSE 84; TEMP 36.8; O2SAT 96
[2025-03-15 20:24] VITALS: BP 177/99; PULSE 83; RESP 18; O2SAT 92
--- NOTE | 2025-03-15 20:31 | XRR_ITS ---
PROCEDURE INFORMATION: Exam: XR Left Knee Exam date and time: 03/15/2025 8:35 PM Age: 60 years old Clinical indication: Pain; Left; Prior surgery; Surgery date: 3-7 days post-operative; Surgery type: Lt total knee TECHNIQUE: Imaging protocol: Radiologic exam of the left knee. Views: 3 views. COMPARISON: CR XR knee LT 1-2V [id number] 03/11/2025 10:22 AM FINDINGS: Bones/joints: Expected postsurgical changes status post total left knee arthroplasty. Soft tissues: Normal. XR/XR knee LT 3V* [id number] IMPRESSION: Expected postsurgical changes status post total left knee arthroplasty.
--- NOTE | 2025-03-15 20:31 | XRR_ITS ---
PROCEDURE INFORMATION: Exam: XR Right Hip Exam date and time: 03/15/2025 8:37 PM Age: 60 years old Clinical indication: Hip pain; Right hip TECHNIQUE: Imaging protocol: Radiologic exam of the right hip. Views: 1 view hip with pelvis when performed. COMPARISON: No relevant prior studies available. FINDINGS: Bones/joints: Multilevel degenerative disc disease in the lower lumbar spine. No acute fracture. No significant degenerative changes in the right hip joint. Soft tissues: Unremarkable. XR/XR hip RT 2-3V wo/w pel* [id number] IMPRESSION: 1. No acute fracture. 2. No significant degenerative changes in the right hip joint.
--- NOTE | 2025-03-15 20:32 | W.ED.LOWEXIN ---
HPI - Extremity Injury (Lower) General: Chief Complaint: Extremity Injury, Lower Stated Complaint: trouble stnading on R leg, 4 days post op L knee Time Seen by Provider: 03/15/25 20:13 Source: patient Mode of arrival: wheelchair Limitations: no limitations History of Present Illness: Patient is a 60-year-old female presents to ED today with a complaint of right hip and left knee pain. Patient states she is status post 4 days left knee arthroplasty by Dr. Mukherjee. States her leg is swollen but this has been present since the surgery. She is doing good about elevating the extremity. She feels like the bruising is improving. Patient states today she accidentally twisted wrong and heard a pop in her right hip and then went down. She feels like she twisted her knee. She is tearful stating because now she cannot walk on either leg. MD complaint: hip injury and knee injury Onset (ago): hour(s) Injury: Left: knee and Right: hip Place: home Severity: severe Relieving factors: immobilization Exacerbating factors: weight bearing Context: fall Associated symptoms: Reports inability to bear weight Other symptoms: none Related Data Home Medications ?Medication ?Instructions ?Recorded ?Confirmed lisinopril 20 mg tablet 20 mg PO DAILY 08/08/22 03/10/25 cholecalciferol (vitamin D3) 50 50 mcg PO DAILY 11/24/24 03/10/25 mcg (2,000 unit) tablet clonazepam 1 mg tablet (Klonopin) 1 mg PO BID anxiety/panic attacks 03/10/25 03/10/25 Previous Rx's ?Medication ?Instructions ?Recorded bilateral hinged knee braces #1 ea 10/14/24 clonidine HCl 0.1 mg tablet 0.1 mg PO BID PRN hypertensive 12/22/24 emergency #60 tabs venlafaxine 100 mg tablet 300 mg (3 x 100 mg) PO .morning 01/14/25 #90 tabs acetaminophen 500 mg tablet 1,000 mg (2 x 500 mg) PO Q8H 15 03/12/25 days #90 tabs aspirin 325 mg tablet,delayed 325 mg PO DAILY 30 days #30 tabs 03/12/25 release celecoxib 200 mg capsule 200 mg PO 1XD 30 days #30 caps 03/12/25 oxycodone 5 mg tablet 5 mg PO Q4H PRN Moderate To Severe 03/12/25 Pain 7 days #30 tabs Allergies Allergy/AdvReac Type Severity Reaction Status Date / Time No Known Allergies Allergy Verified 03/15/25 18:39 Review of Systems Const: Denies: fever(s), chills, body aches, fatigue or malaise Card: Denies: chest pain Resp: Denies: dyspnea Musc: Reports: extremity swelling (L LE-post op total knee), joint pain (R hip, L knee) and joint swelling (L knee-post op knee replacement); Denies: neck pain, back pain or joint redness Neuro: Reports: difficulty walking (due to pain in R hip/L knee); Denies: numbness in extremities, weakness in extremities or sensory changes PFSH ED PFSH: Medical History Chronic post-traumatic stress disorder Major depressive disorder, recurrent severe without psychotic features Generalized anxiety disorder with panic attacks Nicotine dependence, cigarettes, uncomplicated Complicated bereavement Sudden loss of son 09/28/2019 Father in law 11/20/24 Psychiatric care Social History Smoking and tobacco/nicotine status: current every day tobacco/nicotine user cigarettes Packs smoked per day: 1 Years cigarettes smoked: 20 Quit status (tobacco/nicotine): considering quitting Second hand smoke exposure: Yes Alcohol intake: current Alcohol intake frequency: holidays/special occasions only Alcohol type: beer Substance/Drug Use: current Substance/Drug use frequency: few times a week Physical Exam Const: COMMON NORMALS: patient oriented x3, no limitations, alert and well nourished GENERAL APPEARANCE: cooperative ORIENTATION/CONSCIOUSNESS: Yes awake, Yes oriented to person, Yes oriented to place and Yes oriented to time Resp: COMMON NORMALS: normal respiratory effort and clear to auscultation bilaterally AUSCULTATION: clear to auscultation bilaterally Cardio: COMMON NORMALS: regular rate and regular rhythm RATE: regular rate RHYTHM: regular rhythm Back/Pelvis: COMMON NORMALS: thoracic and lumbar spine normal to inspection, no thoracic nor lumbar tenderness and thoraco-lumbar ROM normal Extremity: COMMON NORMALS: capillary refill normal and no calf tenderness GENERAL: Yes normal exam except as noted OTHER: L LE normal 4 day post-op findings; leg edema; healing ecchymosis; surgical site is dressed and appears clean; NV intact she has full passive ROM to R hip; NV intact; no edema noted Neuro: COMMON NORMALS: patient oriented x3, moves all extremities, no focal motor deficits and no sensory deficits noted SENSORIUM/ORIENTATION: Yes alert, Yes oriented to person, Yes oriented to place and Yes oriented to time Course Vital Signs: Vital signs: Vital Signs Temperature 98.2 F 03/15/25 18:32 Pulse Rate 77 03/15/25 20:48 Respiratory Rate 16 03/15/25 20:48 Blood Pressure 177/99 03/15/25 20:24 Pulse Oximetry 92 03/15/25 21:02 Oxygen Delivery Me thod Room Air 03/15/25 20:24 MDM - Extremity Injury (Lower) Medical Decision Making XRs unremarkable. She ambulated here with a walker that she has at home. Will allow discharge. Return precautions discussed. XR interpretation done by ED provider, pending radiology final review Discharge Plan Discharge Patient Disposition: Home Clinical Impression: Acute pain of right hip, Acute pain of left knee Condition: Stable Prescriptions: No Action cholecalciferol (vitamin D3) 50 mcg (2,000 unit) tablet 50 mcg PO DAILY lisinopril 20 mg tablet 20 mg PO DAILY (DME) bilateral hinged knee braces See Rx Instructions .Route .MEDSUPPLY Qty: 1 0RF Rx Instructions: As directed venlafaxine 100 mg tablet 300 mg PO .morning Qty: 90 3RF Rx Instructions: Take three tablets every morning clonidine HCl 0.1 mg tablet 0.1 mg PO BID PRN (Reason: hypertensive emergency) Qty: 60 3RF Rx Instructions: May take one tablet twice per day as needed for systolic BP of 160 or higher clonazepam [Klonopin] 1 mg tablet 1 mg PO BID Rx Instructions: May take tablet twice per day as needed for anxiety/panic attacks celecoxib 200 mg Capsule 200 mg PO 1XD 30 Days Qty: 30 0RF acetaminophen 500 mg Tablet 1,000 mg PO Q8H 15 Days Qty: 90 0RF aspirin 325 mg Tablet,Delayed Release (Dr/Ec) 325 mg PO DAILY 30 Days Qty: 30 0RF oxycodone 5 mg Tablet 5 mg PO Q4H PRN (Reason: Moderate To Severe Pain) 7 Days Qty: 30 0RF Discharge Orders: Discharge ED (Routine); Ordered 03/15/25 Ordered By: Suze Diamond Referrals: Kaila Rivas, CONVERTING OPERATOR [Primary Care Provider, Nurse Practitioner] Activity Restrictions/Additional Instructions: As we discussed, your x-rays are unremarkable. Continue to bear weight with double your walker. Continue to ice and elevate the extremities. You may follow-up with your surgeon as scheduled regarding your knee. You may seek medical re-evaluation for worsening pain, swelling, or any other concerns you may have. Print Language: Kyrgyz Coding Level of Care Code ED Gericare Aide for Chikis Brumfield
[2025-03-15 20:47] VITALS: RESP 18
[2025-03-15] MEDS: ondansetron 2 mg/ML SDV 2 mL 4 MG IM (20:47)
[2025-03-15] MEDS: morphine 4 mg/mL SDV 1 mL IM (20:47)
[2025-03-15 20:48] VITALS: PULSE 77; RESP 16; O2SAT 92
[2025-03-15 21:02] VITALS: O2SAT 92
[2025-03-15 21:38] VITALS: PULSE 85; RESP 18; O2SAT 94
== END 2025-03-15 21:39 | disposition home or self-care (01) ==
PROVIDERS: Emergency Provider Physician Assistant; PCP Nurse Practitioner
DX: M25.551 Pain in right hip (principal); M25.562 Pain in left knee; Z79.82 Long term (current) use of aspirin; F17.210 Nicotine dependence, cigarettes, uncomplicated
CPT/HCPCS: 73502; 73562; 96372; 99284; J2270; J2405

== ENCOUNTER 2025-03-16 14:54 | Emergency (ER) | payer OTHER, SELFPAY ==
[2025-03-16 14:56] VITALS: BP 177/71; PULSE 71; RESP 16; TEMP 36.7; O2SAT 92
--- NOTE | 2025-03-16 15:27 | XRR_ITS ---
PROCEDURE INFORMATION: Exam: XR Left Femur Exam date and time: 03/16/2025 3:47 PM Age: 60 years old Clinical indication: Injury or trauma; Fall; Blunt trauma; Thigh or upper leg; Left TECHNIQUE: Imaging protocol: Radiologic exam of the left femur. Views: 2 views. COMPARISON: CR (LOW EXM, ) 03/15/2025 8:35 PM FINDINGS: Bones/joints: No acute fracture. Soft tissues: Unremarkable. XR/XR femur LT min 2V* [id number] IMPRESSION: No acute findings.
--- NOTE | 2025-03-16 15:27 | XRR_ITS ---
PROCEDURE INFORMATION: Exam: XR Left Knee Exam date and time: 03/16/2025 3:49 PM Age: 60 years old Clinical indication: Injury or trauma; Fall; Blunt trauma; Knee; Left TECHNIQUE: Imaging protocol: Radiologic exam of the left knee. Views: 3 views. COMPARISON: CR (LOW EXM, ) 03/15/2025 8:35 PM FINDINGS: Bones/joints: Intact left total knee arthroplasty. No acute fracture. Soft tissues: Normal. XR/XR knee LT 3V* [id number] IMPRESSION: No acute findings.
--- NOTE | 2025-03-16 15:27 | XRR_ITS ---
PROCEDURE INFORMATION: Exam: XR Right Hip Exam date and time: 03/16/2025 3:43 PM Age: 60 years old Clinical indication: Injury or trauma; Fall; Blunt trauma (contusions or hematomas); Right; Hip; Injury date: 03/15/25 TECHNIQUE: Imaging protocol: Radiologic exam of the right hip. Views: 1 view hip with pelvis when performed. COMPARISON: CR (PELVIS, ) 03/15/2025 8:37 PM FINDINGS: Bones/joints: No acute fracture. Soft tissues: Unremarkable. XR/XR hip RT 2-3V wo/w pel* [id number] IMPRESSION: No acute findings.
--- NOTE | 2025-03-16 15:27 | XRR_ITS ---
PROCEDURE INFORMATION: Exam: XR Right Knee Exam date and time: 03/16/2025 3:45 PM Age: 60 years old Clinical indication: Injury or trauma; Fall; Blunt trauma; Knee; Right; Injury date: 03/15/25 TECHNIQUE: Imaging protocol: Radiologic exam of the right knee. Views: 3 views. COMPARISON: CR XR knees AP WB w BI lmt ORTH 10/14/2024 1:39 PM FINDINGS: Bones/joints: Mild DJD centered in the medial compartment. No acute fracture. Soft tissues: Normal. XR/XR knee RT 3V* [id number] IMPRESSION: No acute findings.
--- NOTE | 2025-03-16 15:27 | XRR_ITS ---
PROCEDURE INFORMATION: Exam: XR Right Tibia and Fibula Exam date and time: 03/16/2025 3:46 PM Age: 60 years old Clinical indication: Injury or trauma; Fall; Blunt trauma; Lower leg; Right; Injury date: 03/15/25 TECHNIQUE: Imaging protocol: Radiologic exam of the right tibia and fibula. Views: 2 views. COMPARISON: CR XR knee RT 3V* [id number] 03/16/2025 3:45 PM FINDINGS: Bones/joints: Normal. Soft tissues: Normal. XR/XR tibia fibula RT 2V [id number] IMPRESSION: No acute findings.
--- NOTE | 2025-03-16 16:25 | W.ED.EXTPRO ---
HPI - Extremity Problem General: Chief complaint: Extremity Injury, Lower Stated complaint: Hip and knee Pain Post Surg/ Fall x 1day Time Seen by Provider: 03/16/25 15:09 History of Present Illness: 60-year-old female presents emergency room she has had several falls since being discharged for her left knee arthroplasty. She was seen yesterday send she was seen yesterday she has had an fall. She is complaining of pain bilaterally in her lower extremities generally feels weak. She did receive fentanyl en route. Patient is also been supplementing in her oxycodone with marijuana use at home. She did not strike her head no loss consciousness. Associated symptoms: Deny chest pain, fever(s) or rash Related Data Home Medications ?Medication ?Instructions ?Recorded ?Confirmed lisinopril 20 mg tablet 20 mg PO DAILY 08/08/22 03/16/25 cholecalciferol (vitamin D3) 50 50 mcg PO DAILY 11/24/24 03/16/25 mcg (2,000 unit) tablet clonazepam 1 mg tablet (Klonopin) 1 mg PO BID anxiety/panic attacks 03/10/25 03/16/25 acetaminophen 500 mg tablet 1,000 mg PO Q8H PRN Pain 03/16/25 03/16/25 celecoxib 200 mg capsule 200 mg PO DAILY 03/16/25 03/16/25 Previous Rx's ?Medication ?Instructions ?Recorded bilateral hinged knee braces #1 ea 10/14/24 clonidine HCl 0.1 mg tablet 0.1 mg PO BID PRN hypertensive 12/22/24 emergency #60 tabs venlafaxine 100 mg tablet 300 mg (3 x 100 mg) PO .morning 01/14/25 #90 tabs aspirin 325 mg tablet,delayed 325 mg PO DAILY 30 days #30 tabs 03/12/25 release oxycodone 5 mg tablet 5 mg PO Q4H PRN Moderate To Severe 03/12/25 Pain 7 days #30 tabs Allergies Allergy/AdvReac Type Severity Reaction Status Date / Time No Known Allergies Allergy Verified 03/15/25 18:39 Review of Systems Const: Denies: fever(s) or chills Card: Denies: chest pain Resp: Denies: dyspnea GI: Denies: abdominal pain : Denies: dysuria, urinary frequency or urinary urgency Musc: Denies: neck pain or back pain Skin/Breast: Denies: rash [facility] PFSH: Medical History Chronic post-traumatic stress disorder Major depressive disorder, recurrent severe without psychotic features Generalized anxiety disorder with panic attacks Nicotine dependence, cigarettes, uncomplicated Complicated bereavement Sudden loss of son 09/28/2019 Father in law 11/20/24 Psychiatric care Social History Smoking and tobacco/nicotine status: current every day tobacco/nicotine user cigarettes Packs smoked per day: 1 Years cigarettes smoked: 20 Quit status (tobacco/nicotine): considering quitting Second hand smoke exposure: Yes Alcohol intake: current Alcohol intake frequency: holidays/special occasions only Alcohol type: beer Substance/Drug Use: current Substance/Drug use frequency: few times a week Physical Exam Const: GENERAL APPEARANCE: cooperative ORIENTATION/CONSCIOUSNESS: Yes awake, Yes oriented to person, Yes oriented to place and Yes oriented to time HENMT: COMMON NORMALS: normocephalic, atraumatic and hearing grossly normal bilaterally HEAD & SCALP: normocephalic and atraumatic Resp: COMMON NORMALS: normal respiratory effort, No retractions, No use of accessory muscles and clear to auscultation bilaterally AUSCULTATION: clear to auscultation bilaterally Cardio: COMMON NORMALS: regular rate, regular rhythm and No murmurs present (Cardio) RATE: regular rate RHYTHM: regular rhythm GI: COMMON NORMALS: Soft to palpation and No hepatosplenomegaly present AUSCULTATION: Yes normoactive bowel sounds PALPATION: Yes Soft to palpation, No Tenderness to palpation present (GI), No Guarding due to palpation present (GI) and Yes No hepatosplenomegaly present Extremity: COMMON NORMALS: normal to inspection, capillary refill normal, no clubbing, cyanosis or edema, no calf tenderness and no pedal edema Neuro: SENSORIUM/ORIENTATION: Yes oriented to person, Yes oriented to place and Yes oriented to time Skin: COMMON NORMALS: no rashes or lesions noted GENERAL SKIN EXAM: no rashes or lesions noted Course Vital Signs: Vital signs: Vital Signs Temperature 98.0 F 03/16/25 14:56 Pulse Rate 88 03/16/25 18:11 Respiratory Rate 16 03/16/25 14:56 Blood Pressure 161/79 03/16/25 18:11 Pulse Oximetry 98 03/16/25 18:11 Oxygen Delivery Me thod Room Air 03/16/25 14:56 MDM - Extremity (Nontraumatic) Medical Decision Making X-rays negative patient is able to stand but is feels very weak. Laboratory tests show anemia but does not appear to be acute. Otherwise no major abnormalities. No clinically significant findings. Do not have any medical indication for admission to the hospital we have talked to case management they are working on getting her cleared to go to [facility]. Unfortunately because she is on [employer] insurance they will not be able to get the approval until tomorrow. Patient discharged home she does have some support services to help her until she is able to get to the custodial tomorrow. She has adequate pain medicines until admitted Medical Records I reviewed the patient's medical records. Lab Data I reviewed the patient's lab results. 03/16/25 16:45 03/16/25 16:45 Radiology Impressions Femur X-Ray 03/16/25 15:27 IMPRESSION: No acute findings. Hip/Pelvis X-Ray 03/16/25 15:27 IMPRESSION: No acute findings. Knee X-Ray 03/16/25 15:27 IMPRESSION: No acute findings. Tibia/Fibula X-Ray 03/16/25 15:27 IMPRESSION: No acute findings. Laboratory Results WBC 5.91 10^3/uL (3.29-11.43) 03/16/25 16:45 RBC 2.59 10^6/uL (3.85-5.65) L 03/16/25 16:45 Hgb 9.10 g/dL (11.27-16.99) L 03/16/25 16:45 Hct 28.1 % (36-47) L 03/16/25 16:45 MCV 108.5 fl (85-98) H 03/16/25 16:45 MCH 35.1 pg (27-33) H 03/16/25 16:45 MCHC 32.4 g/dL (30-55) 03/16/25 16:45 RDW 13.2 % (12.1-15.1) 03/16/25 16:45 Plt Count 179 10^3/cmm (157-399) 03/16/25 16:45 MPV 9.7 fL (7.4-10.4) 03/16/25 16:45 Neut % (Auto) 65.3 % 03/16/25 16:45 Lymph % (Auto) 19.6 % 03/16/25 16:45 [place] % (Auto) 13.9 % 03/16/25 16:45 Eos % (Auto) 0.5 % 03/16/25 16:45 Baso % (Auto) 0.2 % 03/16/25 16:45 Neut # (Auto) 3.86 10^3/uL (1.8-7.7) 03/16/25 16:45 Lymph # (Auto) 1.2 10^3/uL (0.8-4.8) 03/16/25 16:45 [place] # (Auto) 0.8 10^3/uL (0.2-0.9) 03/16/25 16:45 Eos # (Auto) 0.0 10^3/uL (0.0-0.8) 03/16/25 16:45 Baso # (Auto) 0.0 10^3/uL (0.0-0.1) 03/16/25 16:45 Nucleated RBC % (auto) 0.3 % 03/16/25 16:45 Nucleated RBCs # 0.0 /100WBC 03/16/25 16:45 Sodium 140 mmol/L (136-145) 03/16/25 16:45 Potassium 3.0 mmol/L (3.5-5.1) L 03/16/25 16:45 Chloride 101 mmol/L (98-107) 03/16/25 16:45 Carbon Dioxide 29 mmol/L (22-29) 03/16/25 16:45 Anion Gap 13.0 (5-19) 03/16/25 16:45 BUN 12 mg/dL (6-20) 03/16/25 16:45 Creatinine 0.8 mg/dL (0.5-0.9) 03/16/25 16:45 GFR Calculation 73.4 mL/min (90-130) L 03/16/25 16:45 Glucose 94 mg/dL (65-115) 03/16/25 16:45 Calculated Osmolality 290 mOsm/kg (285-295) 03/16/25 16:45 Calcium 8.5 mg/dL (8.5-10.5) 03/16/25 16:45 Total Bilirubin 0.4 mg/dL (0.15-1.2) 03/16/25 16:45 AST 23 U/L (0-32) 03/16/25 16:45 ALT < 5 U/L (0-33) 03/16/25 16:45 Alkaline Phosphatase 76 U/L (35-105) 03/16/25 16:45 Total Protein 5.8 g/dL (6.6-8.7) L 03/16/25 16:45 Albumin 3.3 g/dL (3.5-5.2) L 03/16/25 16:45 Globulin 2.5 g/dL (1.3-4.6) 03/16/25 16:45 All radiology interpretation(s) finalized by discharge Discharge Plan Discharge Patient Disposition: Home Clinical Impression: Acute pain of right hip, Acute pain of left knee Condition: Stable Prescriptions: No Action cholecalciferol (vitamin D3) 50 mcg (2,000 unit) tablet 50 mcg PO DAILY lisinopril 20 mg tablet 20 mg PO DAILY (DME) bilateral hinged knee braces See Rx Instructions .Route .MEDSUPPLY Qty: 1 0RF Rx Instructions: As directed venlafaxine 100 mg tablet 300 mg PO .morning Qty: 90 3RF clonidine HCl 0.1 mg tablet 0.1 mg PO BID PRN (Reason: hypertensive emergency) Qty: 60 3RF clonazepam [Klonopin] 1 mg tablet 1 mg PO BID aspirin 325 mg Tablet,Delayed Release (Dr/Ec) 325 mg PO DAILY 30 Days Qty: 30 0RF oxycodone 5 mg Tablet 5 mg PO Q4H PRN (Reason: Moderate To Severe Pain) 7 Days Qty: 30 0RF celecoxib 200 mg capsule 200 mg PO DAILY acetaminophen 500 mg tablet 1,000 mg PO Q8H PRN (Reason: Pain) Discharge Orders: Discharge ED (Routine); Ordered 03/16/25 Ordered By: Shahram Arreguin Referrals: Kaila Rivas, CORRECTIONAL MAINTENANCE TECHNICIAN [Primary Care Provider, Nurse Practitioner] Discharge Diet: Usual diet Discharge Activity: Increase activity as tolerated Patient Instructions: Opioid Safety, Pain Management Activity Restrictions/Additional Instructions: Thank you for choosing [facility] for your healthcare needs today. It is very important that you follow up as instructed or that you return to the Emergency Department should you have concerns or if your condition changes or worsens in any way. Case management will continue to work with [facility] to try to get their authorization for the custodial. Print Language: Haitian Coding Level of Care Code ED Carton Filler for Chikis Brumfield
--- NOTE | 2025-03-16 16:34 | PC.NURSE ---
PT CAN SIT ON SIDE OF BED AND STAND BUT CAN NOT AMBULATE
[2025-03-16 16:58] LABS: Basophils % 0.2 %; Eosinophils % 0.5 %; Hematocrit 28.1 % (36-47); Lymphocytes # 1.2 10^3/uL (0.8-4.8); Lymphocytes % 19.6 %; Mean Corpuscular HGB Conc 32.4 g/dL (30-55); Mean Corpuscular Hemoglobin 35.1 pg (27-33); Mean Corpuscular Volume 108.5 fl (85-98); Mean Platelet Volume 9.7 fL (7.4-10.4); Monocytes # 0.8 10^3/uL (0.2-0.9); Monocytes % 13.9 %; Neutrophils # 3.86 10^3/uL (1.8-7.7); Neutrophils % 65.3 %; Nucleated Red Blood Cells % 0.3 %; Platelet Count 179 10^3/cmm (157-399); Red Blood Count 2.59 10^6/uL (3.85-5.65); Red Cell Distribution Width 13.2 % (12.1-15.1); White Blood Count 5.91 10^3/uL (3.29-11.43)
[2025-03-16 17:13] LABS: Alanine Aminotransferase < 5 U/L (0-33); Albumin Level 3.3 g/dL (3.5-5.2); Alkaline Phosphatase 76 U/L (35-105); Aspartate Amino Transferase 23 U/L (0-32); Blood Urea Nitrogen 12 mg/dL (6-20); Calcium 8.5 mg/dL (8.5-10.5); Carbon Dioxide 29 mmol/L (22-29); Chloride 101 mmol/L (98-107); Globulin 2.5 g/dL (1.3-4.6); Glomerular Filtration Rate 73.4 mL/min (90-130); Glucose 94 mg/dL (65-115); Osmolality Calculated 290 mOsm/kg (285-295); Sodium 140 mmol/L (136-145); Total Bilirubin 0.4 mg/dL (0.15-1.2); Total Protein 5.8 g/dL (6.6-8.7)
[2025-03-16 18:11] VITALS: BP 161/79; PULSE 88; O2SAT 98
== END 2025-03-16 18:12 | disposition home or self-care (01) ==
PROVIDERS: Emergency Provider Family Medicine; PCP Nurse Practitioner
DX: M25.551 Pain in right hip (principal); M25.562 Pain in left knee; Z96.652 Presence of left artificial knee joint; Z79.82 Long term (current) use of aspirin; F17.210 Nicotine dependence, cigarettes, uncomplicated; M25.561 Pain in right knee
CPT/HCPCS: 36415; 73502; 73552; 73562; 73590; 80053; 85025; 99284

== ENCOUNTER → 2025-03-26 09:09 | Outpatient (BNVA) | payer OTHER, SELFPAY | PROVIDERS: PCP Nurse Practitioner; Visit Provider Nurse Practitioner | DX: Z98.890 Other specified postprocedural states (principal); Z96.652 Presence of left artificial knee joint | CPT/HCPCS: 73560; 73565 ==

== ENCOUNTER 2025-03-31 08:33 | Outpatient (CLI) | payer OTHER, SELFPAY ==
--- NOTE | 2025-03-31 08:39 | XR_ITS ---
WS: [id number] XR chest 2V* [id number] REASON FOR EXAM: fall at home FINDINGS: Calcification of the aortic arch with moderate tortuosity and ectasia of the thoracic aorta. Heart size at the upper limits of normal. Coarse reticular interstitial lung opacities, including Klarissa B-lines. There is blunting of the left costophrenic angle. There is parabronchial cuffing. Patchy irregular lucency in the upper lungs with flattening of the hemidiaphragms. The bony thorax is intact with no rib fracture or thoracic vertebral body compression deformity. XR/XR chest 2V* [id number] IMPRESSION: Suspect congestive heart failure possibly superimposed on central lobar emphyse maAdela
== END 2025-03-31 08:34 | disposition home or self-care (01) ==
LOC: RAD 08:35
PROVIDERS: PCP Nurse Practitioner; Visit Provider Nurse Practitioner
DX: R91.8 Other nonspecific abnormal finding of lung field (principal); W19.XXXA Unspecified fall, initial encounter; Y92.009 Unspecified place in unspecified non-institutional (private) residence as the place of occurrence of the external cause; R93.89 Abnormal findings on diagnostic imaging of other specified body structures; I70.0 Atherosclerosis of aorta; J98.4 Other disorders of lung
CPT/HCPCS: 71046

== ENCOUNTER → 2025-04-13 09:19 | Outpatient (BNVA) | payer OTHER, SELFPAY | PROVIDERS: PCP Nurse Practitioner; Visit Provider Orthopaedic Surgery | DX: M54.9 Dorsalgia, unspecified (principal); M54.6 Pain in thoracic spine | CPT/HCPCS: 72072; 99203 ==

== ENCOUNTER 2025-04-15 16:28 | Outpatient (CLI) | payer OTHER, SELFPAY ==
--- NOTE | 2025-04-15 16:45 | MR_ITS ---
WS: [id number] MRI THORACIC SPINE noncontrast HISTORY: Back Pain COMPARISON: Radiograph 04/13/2025 TECHNIQUE: Multiplanar sequences are performed in sagittal and axial planes. C5-6 disc osteophyte encroaching upon the ventral cord with stenosis. T3 hemangioma. Mild increase in thoracic kyphosis and levoscoliosis. Disc spaces are all narrowed. No marrow edema or acute fracture. Signal within the cord is normal. T1-2: Normal. T2-3: Normal. T3-4: Very mild disc bulging. T4-5: Motion artifact. Mild foraminal stenosis. T5-6: Small vertebral body osteophytes. T6-7: Shallow LEFT paracentral disc protrusion. T7-8: Facet arthritis. No stenosis. T8-9: Facet arthritis. No stenosis. T9-10: Facet arthritis. No stenosis. T10-11: Mild foraminal stenosis and facet arthritis. T11-12: Facet joint arthropathy encroaching upon the posterior thecal sac resulting in mild central and mild to moderate bilateral foraminal stenosis. Small bilateral pleural effusions, RIGHT is greater in size. MR/MR thoracic spin wo con* [id number] IMPRESSION: 1. Mild increase in thoracic kyphosis. 2. High-grade cervical stenosis at C5-6 due to disc osteophyte complex central ly. Cervical cord is being pinched at this location. Cervical spine MRI should be considered to exclude myelomalacia. 3. Mild increase in thoracic kyphosis with multilevel facet joint arthropathy. 4. Shallow LEFT paracentral disc protrusion at T6-7. 5. T11-12: Facet joint arthritis encroaching upon the posterior thecal sac res ulting in mild central with mild to moderate bilateral foraminal stenosis. Encr oaching facet joint arthropathy greatest on the LEFT. 6. No acute thoracic spine fracture. 7. Small bilateral pleural effusions, RIGHT greater than LEFT.
== END 2025-04-15 16:29 | disposition home or self-care (01) ==
LOC: RAD 16:28
PROVIDERS: PCP Nurse Practitioner; Visit Provider Orthopaedic Surgery
DX: M48.04 Spinal stenosis, thoracic region (principal); M40.204 Unspecified kyphosis, thoracic region; M48.02 Spinal stenosis, cervical region; M25.78 Osteophyte, vertebrae; M51.24 Other intervertebral disc displacement, thoracic region; J90 Pleural effusion, not elsewhere classified; M47.814 Spondylosis without myelopathy or radiculopathy, thoracic region
CPT/HCPCS: 72146

== ENCOUNTER → 2025-04-16 09:21 | Outpatient (BNVA) | payer OTHER, SELFPAY | PROVIDERS: PCP Nurse Practitioner; Visit Provider Nurse Practitioner | DX: Z96.652 Presence of left artificial knee joint (principal); R29.6 Repeated falls; R45.89 Other symptoms and signs involving emotional state; M17.12 Unilateral primary osteoarthritis, left knee; Z98.890 Other specified postprocedural states | CPT/HCPCS: 99024 ==

== ENCOUNTER → 2025-04-20 14:53 | Outpatient (BNVA) | payer OTHER, SELFPAY | PROVIDERS: PCP Nurse Practitioner; Visit Provider Orthopaedic Surgery | DX: Z09 Encounter for follow-up examination after completed treatment for conditions other than malignant neoplasm (principal); S22.42XA Multiple fractures of ribs, left side, initial encounter for closed fracture; W19.XXXA Unspecified fall, initial encounter | CPT/HCPCS: 99213 ==

== ENCOUNTER → 2025-05-10 10:04 | Outpatient (BNVA) | payer OTHER, SELFPAY | PROVIDERS: PCP Nurse Practitioner; Visit Provider Nurse Practitioner | DX: Z96.652 Presence of left artificial knee joint (principal); M79.671 Pain in right foot; M79.672 Pain in left foot; R29.6 Repeated falls; R45.89 Other symptoms and signs involving emotional state | CPT/HCPCS: 73560; 73565; 99024 ==

== ENCOUNTER 2025-05-18 15:53 | Outpatient (CLI) | payer OTHER, SELFPAY ==
--- NOTE | 2025-05-18 16:18 | CT_ITS ---
WS: [id number] CT chest w con* [id number] HISTORY: MEDIASTINAL WIDENING, PNEUMONIA TECHNIQUE: Axial imaging performed through the thorax. Coronal and sagittal reformats are submitted. All CT scans at [facility] use at least one of these dose optimization techniques: automated exposure control; mA and/or kV adjustment per patient size (includes targeted exams where dose is matched to clinical indication); or iterative reconstruction. CONTRAST: Omnipaque 350; 100 mL IV. DLP: 293.07 mGy.cm COMPARISON: Chest radiograph 03/31/2025 Lungs and central airway: Chronic emphysema. Mild hyperexpansion. Diffuse interstitial thickening and hazy attenuation throughout both lungs. No pneumonia, mass or nodule. Mild thickening along the fissures. Pleura: Small bilateral layering pleural effusions. Heart and pericardium: Moderate cardiomegaly. Greater enlargement involving the LEFT heart. Mediastinum and adams: No pathologically enlarged lymph nodes. Vessels: Moderate atherosclerosis aorta. No aneurysmal dilatation of the aorta. Pulmonary artery is slightly enlarged. Chest wall and lower neck: No soft tissue masses. Upper abdomen: Visualized liver is normal. Mild tricuspid regurgitation into the hepatic veins. Suprarenal aortic calcifications extend into the mesenteric arteries. Adrenal glands are negative. Osseous structures: Mild thoracic spondylitic changes and hypertrophic osteophytes. No destructive bone lesions. CT/CT chest w con* [id number] IMPRESSION: 1. Mild pulmonary edema. 2. Small bilateral pleural effusions. 3. Moderate LEFT heart enlargement. 4. No pneumonia. 5. No pathologically enlarged lymph nodes. 6. Moderate atherosclerosis thoracic aorta and suprarenal at abdominal aorta.
[2025-05-18] MEDS: iohexol 350 mg/mL 500 mL Btl (per mL) IV (16:50)
== END 2025-05-18 15:54 | disposition home or self-care (01) ==
LOC: RAD 15:54
PROVIDERS: PCP Nurse Practitioner; Visit Provider Nurse Practitioner
DX: J90 Pleural effusion, not elsewhere classified (principal); J81.1 Chronic pulmonary edema; I51.7 Cardiomegaly; I70.0 Atherosclerosis of aorta; Z87.01 Personal history of pneumonia (recurrent)
CPT/HCPCS: 71260

== ENCOUNTER → 2025-06-03 08:59 | Outpatient (BNVA) | payer OTHER, SELFPAY | PROVIDERS: PCP Nurse Practitioner; Visit Provider Nurse Practitioner | DX: Z98.890 Other specified postprocedural states (principal); Z96.652 Presence of left artificial knee joint | CPT/HCPCS: 99213 ==

== ENCOUNTER → 2025-07-22 09:09 | Outpatient (BNVA) | payer OTHER, SELFPAY | PROVIDERS: PCP Nurse Practitioner; Visit Provider Nurse Practitioner Family | DX: S80.911A Unspecified superficial injury of right knee, initial encounter (principal); X58.XXXA Exposure to other specified factors, initial encounter; L73.8 Other specified follicular disorders; L57.8 Other skin changes due to chronic exposure to nonionizing radiation; L68.0 Hirsutism; B35.1 Tinea unguium; L57.3 Poikiloderma of Civatte | CPT/HCPCS: 99203 ==

== ENCOUNTER → 2025-07-26 14:51 | Outpatient (BNVA) | payer OTHER, SELFPAY | PROVIDERS: PCP Nurse Practitioner; Visit Provider Internal Medicine Cardiovascular Disease | DX: I11.0 Hypertensive heart disease with heart failure (principal); I50.9 Heart failure, unspecified; F17.210 Nicotine dependence, cigarettes, uncomplicated; R07.9 Chest pain, unspecified | CPT/HCPCS: 36415; 80048; 83880; 93005; 99204 ==

== ENCOUNTER → 2025-07-30 10:02 | Outpatient (BNVA) | payer OTHER, SELFPAY | PROVIDERS: PCP Nurse Practitioner; Visit Provider Nurse Practitioner | DX: Z47.89 Encounter for other orthopedic aftercare (principal); M62.81 Muscle weakness (generalized); Z96.652 Presence of left artificial knee joint | CPT/HCPCS: 99214 ==

== ENCOUNTER 2025-08-19 13:32 | Outpatient (CLI) | payer OTHER, SELFPAY ==
--- NOTE | 2025-08-19 14:15 | USCV_ITS ---
Valentina Jain Age: 60 Gender: F : 1965 Exam Date: 08/19/2025 13:46 Ordering Phys: Carlos Eduardo Desai MD ([email or web address]) Technologist: Exam Location: [facility] [place]ication: ef BP: 90 / 60 HR: Rhythm: Sinus Technical Quality: Adequate MEASUREMENTS (Male / Female) Normal Values 2D ECHO LV Diastolic Diameter PLAX 5.1 cm 4.2 - 5.9 / 3.9 - 5.3 cm IVS Systolic Thickness 2.0 cm LVPW Systolic Thickness 2.1 cm LVOT Diameter 2.3 cm LV Ejection Fraction 2D Teich 42.9 % LV Ejection Fraction MOD 4C 49.5 % LV Ejection Fraction MOD 2C 59.5 % LV Ejection Fraction 2C AL 62.5 % LA Diameter 3.7 cm RA Systolic Volume 4C AL 44.9 ml RA Systolic Volume 4C MOD 43.5 ml Aorta at Sinotubular Diameter 3.4 cm IVC Diameter 1.5 cm M-MODE LA Ao Ratio MM 1.0 AV Cusp Separation MM 2.1 cm FINDINGS Left Ventricle Upper limits of normal left ventricular cavity size. Mild concentric left ventricular hypertrophy. Normal left ventricular systolic function, ejection fraction 55%. Right Ventricle Right Atrium Left Atrium IA Septum Mitral Valve Aortic Valve Tricuspid Valve Pulmonic Valve Pericardium Aorta IVC CONCLUSIONS 1. Upper limits of normal left ventricular cavity size. Normal left ventricular systolic function, EF 55%. 2. Mild concentric left ventricular hypertrophy 3. This study was ordered as a limited study to assess left ventricular ejection fraction only. Carlos Eduardo Desai MD, FACC (Electronically Signed) Final Date: 24 August 2025 20:55 S
== END 2025-08-19 13:33 | disposition home or self-care (01) ==
LOC: RAD 13:33
PROVIDERS: PCP Nurse Practitioner; Visit Provider Internal Medicine Cardiovascular Disease
DX: I50.9 Heart failure, unspecified (principal); I51.7 Cardiomegaly
CPT/HCPCS: 93308

== ENCOUNTER → 2025-08-25 09:25 | Outpatient (BNVA) | payer OTHER, SELFPAY | PROVIDERS: PCP Nurse Practitioner; Visit Provider Internal Medicine Cardiovascular Disease | DX: I11.0 Hypertensive heart disease with heart failure (principal); I50.20 Unspecified systolic (congestive) heart failure; F17.200 Nicotine dependence, unspecified, uncomplicated; I35.1 Nonrheumatic aortic (valve) insufficiency; I25.10 Atherosclerotic heart disease of native coronary artery without angina pectoris | CPT/HCPCS: 99214 ==

== ENCOUNTER → 2025-08-31 08:45 | Outpatient (BNVA) | payer OTHER, SELFPAY | PROVIDERS: PCP Nurse Practitioner; Referring Provider Nurse Practitioner; Visit Provider Internal Medicine Rheumatology | DX: M15.9 Polyosteoarthritis, unspecified (principal); I73.00 Raynaud's syndrome without gangrene; Z83.2 Family history of diseases of the blood and blood-forming organs and certain disorders involving the immune mechanism | CPT/HCPCS: 36415; 80076; 82306; 82565; 83516; 85025; 86146; 86147; 99204 ==

== ENCOUNTER 2025-09-20 12:03 | Outpatient (CLI) | payer OTHER, SELFPAY ==
[2025-09-20 13:45] LABS: Anion Gap 12.3 (5-19); Blood Urea Nitrogen 19 mg/dL (6-20); Calcium 9.5 mg/dL (8.5-10.5); Carbon Dioxide 24 mmol/L (22-29); Chloride 105 mmol/L (98-107); Glucose 115 mg/dL (65-115); NT Pro B Type Natriuretic Pept 1538 pg/mL (0-125); Osmolality Calculated 287 mOsm/kg (285-295); Potassium 4.3 mmol/L (3.5-5.1); Sodium 137 mmol/L (136-145)
== END 2025-09-20 12:04 | disposition home or self-care (01) ==
LOC: LAB 12:05
PROVIDERS: PCP Nurse Practitioner; Referring Provider Internal Medicine Cardiovascular Disease; Visit Provider Internal Medicine Rheumatology
DX: I11.0 Hypertensive heart disease with heart failure (principal); I50.9 Heart failure, unspecified
CPT/HCPCS: 80048; 83880

== ENCOUNTER 2025-10-06 06:49 | Outpatient (CLI) | payer OTHER, SELFPAY ==
--- NOTE | 2025-10-06 07:14 | CT_ITS ---
WS: [id number] LDCT LUNG CANCER SCREENING HISTORY: HX OF NICOTINE DEPENDENCE TECHNIQUE: Axial imaging performed from the apices to 1 cm below the costophrenic angles. Coronal and sagittal reformats are submitted with axial MIP series. All CT scans at [facility] use at least one of these dose optimization techniques: automated exposure control; mA and/or kV adjustment per patient size (includes targeted exams where dose is matched to clinical indication); or iterative reconstruction. DLP: 52.49 mGy.cm DIvol: Mean CTDIvol: 0.90 (mGy) COMPARISON: 05/16/2025 Diagnostic quality: Satisfactory Lungs: Moderate paraseptal and centrilobular emphysema. Benign granuloma RIGHT upper lobe. Benign calcified granuloma LEFT lower lobe. Thin bandlike area of atelectasis RIGHT lower lobe. LEFT mild hazy attenuation is diffuse from smoking. No pulmonary mass or nodule. Heart: Mild cardiomegaly. Scattered coronary artery calcifications.. Other findings: Mild atherosclerosis aorta. No aneurysm. Normal size pulmonary artery. Small mediastinal and hilar lymph nodes. Suprarenal aortic calcifications. CT/CT lung screening [id number] IMPRESSION: LUNG-RADS: 2-Benign Appearance or Behavior FOLLOW UP: 12 Month: Continue annual screening with LDCT OTHER FINDINGS (S MODIFIER): None.
== END 2025-10-06 06:50 | disposition home or self-care (01) ==
LOC: RAD 06:49
PROVIDERS: PCP Nurse Practitioner; Visit Provider Nurse Practitioner
DX: F17.210 Nicotine dependence, cigarettes, uncomplicated (principal); Z12.2 Encounter for screening for malignant neoplasm of respiratory organs; J43.2 Centrilobular emphysema; J43.8 Other emphysema; J98.4 Other disorders of lung; J98.11 Atelectasis; I70.0 Atherosclerosis of aorta; I35.8 Other nonrheumatic aortic valve disorders; R59.0 Localized enlarged lymph nodes
CPT/HCPCS: 71271